=== PATIENT | female | born 1975 | race Caucasian/White ===

== ENCOUNTER 2022-06-07 17:38 | Outpatient (CLI) | payer BC, SELFPAY | END 2022-06-07 17:39 | disposition home or self-care (01) | LOC: NFLDUCREF 06-13 14:47 | PROVIDERS: PCP Physician Assistant Medical; Visit Provider Family Medicine | DX: R35.0 Frequency of micturition (principal); N39.0 Urinary tract infection, site not specified | CPT/HCPCS: 87086; 87186 ==